=== PATIENT | female | born 1970 | race Caucasian/White ===

== ENCOUNTER 2024-04-23 13:41 | Emergency (ER) | payer SELFPAY ==
[2024-04-23 13:41] VITALS: BMI 26.2
[2024-04-23 13:52] VITALS: BP 120/72
[2024-04-23 14:20] LABS: % Basophils 1.3 % (0-2); % Eosinophils 2.6 % (0-6); % Immature Granulocytes 0.2 % (0-0.5); % Lymphocytes 27.9 % (20.5-51.1); % Monocytes 5.8 % (1.7-9.3); % Neutrophils 62.2 % (42.2-75.2); Absolute Basophils 0.1 10^3/uL (0-0.2); Absolute Eosinophils 0.1 10^3/uL (0-0.7); Absolute Lymphocytes 1.5 10^3/uL (1.2-3.4); Absolute Monocytes 0.3 10^3/uL (0.1-0.6); Absolute Neutrophils 3.3 10^3/uL (1.4-6.5); Hematocrit 37.1 % (37.0-47.0); Hemoglobin 12.7 g/dL (12.0-16.0); Mean Corp Hgb Conc. 34.2 g/dL (33.0-37.0); Mean Corpuscular Hgb 31.1 pg (27.0-31.0); Mean Corpuscular Volume 90.7 fL (81.0-99.0); Nucleated Red Blood Cells % 0 %; Platelet Count 167 10^3/uL (130-400); Red Blood Cell Count 4.09 10^6/uL (4.20-5.40); Red Cell Dist. Width 13.1 % (11.5-14.5); White Blood Cell Count 5.4 10^3/uL (4.8-10.8)
[2024-04-23 14:32] LABS: ALT (SGPT) 54 U/L (0-35); AST (SGOT) 84 U/L (14-36); Albumin 4.7 g/dl (3.5-5.0); Alkaline Phosphatase 77 U/L (38-126); Blood Urea Nitrogen 23 mg/dl (7-17); Calcium 9.8 mg/dl (8.4-10.2); Carbon Dioxide 31 mmol/L (22-30); Chloride 97 mmol/L (98-107); Glucose 72 mg/dl (70-99); Potassium 3.9 mmol/L (3.5-5.1); Sodium 134 mmol/L (135-145); Total Bilirubin 0.4 mg/dl (0.2-1.3); Total Protein 7.9 g/dl (6.3-8.2); eGFR 53.46
[2024-04-23 16:00] VITALS: BP 107/58
[2024-04-23 16:36] LABS: Free T4 0.07 ng/dl (0.78-2.19)
[2024-04-23] MEDS: LEVOTHROID 50 MCG IV (17:45)
--- NOTE | 2024-04-23 18:04 | ED.GENMED ---
History of Present Illness
General
Chief Complaint: Abnormal Lab Value
Source: patient
Exam Limitations: none
Time Seen by Provider: 04/23/24 16:33
History of Present Illness
History of Present Illness:
54yoF with a history of hypothyroid send presenting with her for evaluation of abnormal outpatient labs. Patient was previously on Synthroid for 40 years. She stopped taking this in 2021 to focus on more natural treatment of her
hypothyroidism. She was following with a naturopathic doctor and has been taking a thyroid supplement. Her TSH was reportedly 111 in July of last year. She subsequently followed up with a thyroid specialist in [place] and was sent for outpatient
lab work. TSH from earlier this week came back elevated at 131 and she was advised to go to the ED for evaluation. Patient is symptomatic with fatigue, brain fog, and constipation. She feels like her 'body is shutting down.'
Phy Exam
General Physical Exam
General Presentation: no apparent distress
General Skin: warm and dry
General Mental: alert
ENT Exam
ENT Exam: normocephalic
Cardiovascular Exam
Cardiovascular Exam: regular rate/rhythm
Pulmonary Exam
Pulmonary Exam: lungs clear, no respiratory distress, no rales, no crackles, no rhonchi and no wheezing
Neurological Exam
Neurological Exam: alert
Karsten Coma Scale
Eye Opening: Spontaneous
Verbal Response: Oriented
Motor Response: Obeys Commands
GCS Total Score: 15
Skin Exam
Skin Exam: warm/dry and pallor
Psychiatric Exam
Psychiatric Exam: normal mood/affect
Course
Orders/Labs/Results
Orders:
Orders
04/23/24 14:07
CMP [Comprehensive Metabolic Panel] Urgent
Complete Blood Count/With Diff Urgent
Free T4 Urgent
TSH Reflex To Free T4 Urgent
04/23/24 17:30
Levothyroxine [Levothroid] 50 mcg IV ONCE ONE
Patient requires IV dosing to begin now?: Yes
Reason to begin IV dosing now:: TSH greater than 10
Abnormal Lab Results
04/23/24
14:07
RBC 4.09 L 10^6/uL
(4.20-5.40)
MCH 31.1 H pg
(27.0-31.0)
Sodium 134 L mmol/L
(135-145)
Chloride 97 L mmol/L
(98-107)
Carbon Dioxide 31 H mmol/L
(22-30)
BUN 23 H mg/dl
(7-17)
Creatinine 1.2 H mg/dL
(0.6-1.0)
AST 84 H U/L
(14-36)
ALT 54 H U/L
(0-35)
TSH (Reflex) 126.00 H uIU/ml
(0.47-4.68)
Free T4 0.07 L ng/dl
(0.78-2.19)
04/23/24 14:07
04/23/24 14:07
Vital Signs
Initial and Last Documented VS:
Initial Vital Signs
Temp Pulse Resp BP Pulse Ox
98.0 F 68 16 120/72 98
04/23/24 13:52 04/23/24 13:52 04/23/24 13:52 04/23/24 13:52 04/23/24 13:52
Last Documented Vital Signs
Temp Pulse Resp BP Pulse Ox
98.0 F 68 14 107/58 100
04/23/24 13:52 04/23/24 16:00 04/23/24 16:00 04/23/24 16:00 04/23/24 16:00
MDM/Problems Addressed
Differential Diagnosis Includes:
54yoF here for evaluation of an elevated TSH as an outpatient. TSH was reportedly 131. Stopped Synthroid in 2021. Feels fatigued and run down. Vital signs stable including normal blood pressure. She appears pale but is otherwise non-toxic.
Differential diagnosis includes but is not limited to: Hypothyroidism, medication noncompliance, no clinical evidence of myxedema coma
Labs obtained in triage and TSH is elevated at 126 and free T4 is 0.07. Case was discussed with on-call tablet machine operator, Dr. Garcia. Endocrinology recommending dose of IV levothyroxine 50 mcg during ED stay and starting patient on 88 mcg of
levothyroxine daily. She will need close follow-up in the office and repeat blood work in 6 weeks. Patient in agreement with plan. Strict ED return precautions discussed and patient discharged in stable condition.
*Critical Care Note
Total Time (30-74mins, 75-104mins- exclusive of procedures): Not Applicable
ED Attending Note
-
Portions of this chart may have been created with voice recognition software.� Occasional wrong word or��sound alike� substitutions may have occurred due to the inherent limitations of voice recognition software.
Discharge Plan
Departure
Patient Disposition: Home (Routine Discharge)
Date of Disposition: 04/23/24
Time of Disposition: 17:57
Patient with high blood pressure during this ER visit?: No
Discharge Problem:
Hypothyroidism
Instructions: Hypothyroidism (underactive thyroid), Levothyroxine
Prescriptions:
New
levothyroxine 88 mcg capsule
88 mcg PO DAILY Qty: 30 0RF
Referrals:
Lakisha Garcia MD [Consulting Staff] -
NONE,* [Family Provider] -
Activity Restrictions/Additional Instructions:
A one month supply of levothyroxine was sent to your pharmacy. It is important that you space this out from calcium, iron containing antacids, or any antacids to ensure adequate absorption.
Please call on Friday to schedule a follow-up with endocrinology. You will need to have repeat blood work in 6 weeks.
Return to the ER immediately with any new worsening symptoms.
Interventions
Interventions:
*Risk Screen - Suicide Last Done: 04/23/24 13:52
*General Assessment Last Done: 04/23/24 18:36
*Neglect/Abuse Screening Last Done: 04/23/24 13:52
*ED- Fall Risk Assessment Last Done: 04/23/24 18:36
*ED COVID-19 Vaccine History Last Done: 04/23/24 18:36
*Nursing Disposition Last Done: 04/23/24 18:36
Discharge Date and Time
Discharge Date/Time: 04/23/24 18:00
Print Language: MAURITIAN
== END 2024-04-23 18:00 | disposition home or self-care (01) ==
LOC: EMR 13:41
PROVIDERS: EMERGENCY PHYSICIAN Student in an Organized Health Care Education/Training Program
DX: E03.9 Hypothyroidism, unspecified (principal)
CPT/HCPCS: 99284; 96374; 80053; 84439; 84443; 85025